=== PATIENT | female | born 1985 | race Caucasian/White ===

== ENCOUNTER 2016-12-13 13:20 | Observation (INO) ==
[2016-12-13] MEDS ORDERED: ceFAZolin 2,000 MG in D5% in Water (Mini-Bag+) 100 ML IVPB ONE (14:33)
[2016-12-13] MEDS ORDERED: *HR* OxyCODONE Immed Rel 5 MG TABLET PO PRN (14:38)
[2016-12-13] MEDS ORDERED: Ondansetron 4 MG/2 ML VIAL IVP PRN (14:38)
[2016-12-13] MEDS ORDERED: *HR* Morphine 2 MG/ML SYRINGE IVP PRN (14:38)
[2016-12-13] MEDS ORDERED: Ringers Solution, Lactated 1,000 ML IVC SCH (14:45)
[2016-12-13] MEDS ORDERED: CeFAZolin Pre 3,000 MG/100 ML 3,000 MG/100 ML BAG IVPB ONE (15:00)
[2016-12-13 15:43] LABS: BUN/Creatinine Ratio 18 (6-26); Blood Urea Nitrogen 13 mg/dL (7-20); Calcium 9.8 mg/dL (8.6-10.8); Carbon Dioxide 29 mEq/L (19-29); Chloride 103 mEq/L (98-109); Glucose 98 mg/dL (70-99); Osmolality,Calculated 290 (280-300); Potassium 3.7 mEq/L (3.5-4.5); Sodium 140 mEq/L (136-145); eGFR For African Americans > 60 (> 60); eGFR For Non-African Americans > 60 (> 60)
[2016-12-13 15:54] LABS: INR 1.1; Prothrombin Time 12.1 Seconds (9.4-12.1)
[2016-12-13 15:56] LABS: Activated Partial Thrombo Time 37.3 Seconds (26.0-36.0)
[2016-12-13 15:59] LABS: Basophils % 0.6 %; Eosinophils # 0.1 K/mcL (0.0-0.6); Eosinophils % 0.8 %; Hematocrit 39.3 % (35.3-44.9); Hemoglobin 12.2 g/dL (11.5-15.4); Immature Granulocytes % 0.1 % (0-4); Lymphocytes # 4.3 K/mcL (0.6-4.6); Lymphocytes % 61.1 %; Mean Corpuscular Hemoglobin 26.3 pg (28.0-33.3); Mean Corpuscular Volume 84.9 fL (83.0-100.0); Mean Platelet Volume 9.6 fL (9.4-12.4); Monocytes # 0.4 K/mcL (0.0-1.3); Monocytes % 5.5 %; Neutrophils # 2.3 K/mcL (1.6-8.9); Platelet Count 311 K/mcL (140-400); Red Blood Count 4.63 M/mcL (3.82-4.97); Red Cell Distribution Width 12.5 % (11.5-14.5); Segmented Neutrophils % 31.9 %
[2016-12-13] MEDS: *HR* OxyCODONE Immed Rel 5 MG TABLET PO PRN (21:41)
--- NOTE | 2016-12-13 22:01 | Anesthesia Evaluation PreOp ---
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 Significant HX Other Medical History: Diabetes Type II, Thyroid, Other (obesity BMI=45.4) Anesthesia History: No Prior Anesthetic Complications, Past Anesthesia Alcohol Use: none Drug use: none Medications and Allergies Gabapentin [Neurontin] 300 mg PO QAM 11/02/16 [History] Hydrochlorothiazide 12.5 mg PO DAILY 11/02/16 [History] Levothyroxine [Synthroid] 175 mcg PO DAILY 11/02/16 [History] Liraglutide [Victoza 3-Favio] 1.2 mg SQ DAILY 11/02/16 [History] Metformin HCl [Glucophage Xr] 750 mg PO QPM 11/02/16 [History] Multivitamin [Multi-Day Vitamins] 1 tab PO DAILY 11/02/16 [History] Simvastatin [Zocor] 40 mg PO HS 11/02/16 [History] Spironolactone [Aldactone] 50 mg PO DAILY 11/02/16 [History] Cephalexin [Cephalexin] 500 mg PO QID 12/13/16 [History] Gabapentin [Neurontin] 600 mg PO HS 12/13/16 [History] HYDROcodone/Acet 5/325 mg [[place] 5-325 mg] 1 tab PO Q6H PRN 12/13/16 [History] Allergies linagliptin [From Tradjenta] Adverse Reaction (Verified 11/02/16 12:47) Confusion propoxyphene Adverse Reaction (Verified 11/02/16 12:47) Confusion - Meds/Allergy Pre-op Review Medications Reviewed: Yes Allergies Reviewed: Yes Beta Blockers on Current Med List: No Anesthesia Results - Labs 12/13/16 14:47 12/13/16 14:47 Laboratory Tests 12/13/16 14:47 PT 12.1 INR 1.1 APTT 37.3 H - Imaging EKG: report reviewed (11/01/2016 SR) Anesthesia Exam Vital Signs/O2 Sat/Glucose, Most Recent Temp Pulse Resp BP Pulse Ox 98.0 F 74 18 122/76 94 L 12/13/16 14:33 12/13/16 14:33 12/13/16 14:33 12/13/16 14:33 12/13/16 14:33 Blood Glucose* 100 Height: 6'/1.83 m Weight: 335 lbs/151.953 kg Pain Scale: 3 Pain Scale Used: Numeric (1 - 10) - HEENT Pupil (Motor): EOMI Mallampati: III Teeth: Normal Oral Opening: Greater than 3 - NURSING TEACHER LOC: Oriented NURSING TEACHER Motor: Normal RUE, Normal LUE, Normal RLE, Normal LLE, Normal Face NURSING TEACHER Sensory: Normal: RUE, LUE, RLE, LLE, Face - Cardiac Rhythm: Regular Murmur: None - Pulmonary Breath Sounds: bilateral Clear Respiratory Effort: Symmetrical Anesthesia Assess/Plan ASA Score: 3 Modified Linda Scale for Level of Consciousness: Cooperative, oriented, and tranquil Anesthetic Plan: General Monitoring Plan: Standard Monitors Recovery Plan: PACU
[2016-12-14] MEDS: *HR* OxyCODONE Immed Rel 5 MG TABLET PO PRN ×4 (02:02→22:08)
--- NOTE | 2016-12-14 08:12 | Spine - History & Physical Rep ---
Date of Encounter: 12/14/16 Time of Encounter: 07:30 Assessment and Plan (1) History of lumbar laminectomy Current visit: Yes Status: Chronic (2) Wound drainage Current visit: Yes Status: Acute On exam she is afebrile vital signs are stable. She is neurovascularly intact with regard to her bilateral lower extremities. Lungs are clear, cardiovascular regular rate and rhythm abdomen is soft nontender and nondistended but is obese. Her lumbar spine has serosanguineous/bloody material coming from the ends of the wound which is open about 1 cm on each end distally and proximally. Mild erythema about the wound. She has a negative straight leg raise. Her hips move symmetrically. There is no clonus. Impression: 1) history of lumbar laminectomy 2) lumbar wound drainage Plan: We are going to admit for definitive management of the wound. We will get routine preoperative preparation in order including appropriate laboratory studies. We have discussed wound closure versus possible irrigation and debridement of the lumbar wound depending on intraoperative findings. Risk and benefits were discussed and the patient would like to proceed. History of Present Illness Chief complaint: wound drainage HPI: Ms. Rayo is a 31 year old female who is status post lumbar decompression surgery 11/02/2016. She had an uneventful postoperative course but recently developed drainage from her lumbar wound for approximately 1 week. She denies fevers and chills. The drainage of worsened and became continuous despite oral antibiotics in the form of Keflex. Due to the need for wound management and possible closure and/or irrigation and debridement she was admitted for definitive management. Past Med Surg Social Fam HX - Past Medical History Medical history: diabetes, hypertension, liver disease Psychiatric history: no psych history - Social History Smoking Status: Former smoker Smokeless Tobacco Status: No Alcohol use: none Drug use: none - Family History Mother Living Status: Still Living Hx Family Endocrine Disorder: Yes (hypothyroidism) Father Living Status: Still Living Hx Family Cardiac Disorders: Yes (double bypass, triple bypass, high blood pressure) Hx Family Cancer: Yes (skin cancer) Medications and Allergies Gabapentin [Neurontin] 300 mg PO QAM 11/02/16 [History] Hydrochlorothiazide 12.5 mg PO DAILY 11/02/16 [History] Levothyroxine [Synthroid] 175 mcg PO DAILY 11/02/16 [History] Liraglutide [Victoza 3-Favio] 1.2 mg SQ DAILY 11/02/16 [History] Metformin HCl [Glucophage Xr] 750 mg PO QPM 11/02/16 [History] Multivitamin [Multi-Day Vitamins] 1 tab PO DAILY 11/02/16 [History] Simvastatin [Zocor] 40 mg PO HS 11/02/16 [History] Spironolactone [Aldactone] 50 mg PO DAILY 11/02/16 [History] Cephalexin [Cephalexin] 500 mg PO QID 12/13/16 [History] Gabapentin [Neurontin] 600 mg PO HS 12/13/16 [History] HYDROcodone/Acet 5/325 mg [[place] 5-325 mg] 1 tab PO Q6H PRN 12/13/16 [History] Allergies linagliptin [From Tradjenta] Adverse Reaction (Verified 11/02/16 12:47) Confusion propoxyphene Adverse Reaction (Verified 11/02/16 12:47) Confusion Results - Labs Result Diagrams: 12/13/16 14:47 12/13/16 14:47 Labs: Abnormal lab results MCH 26.3 pg (28.0-33.3) L 12/13/16 14:47 MCHC 31.0 g/dL (31.6-35.5) L 12/13/16 14:47 APTT 37.3 Seconds (26.0-36.0) H 12/13/16 14:47 H & H 12/13/16 Range/Units 14:47 Hgb 12.2 (11.5-15.4) g/dL Hct 39.3 (35.3-44.9) % All other labs normal. - VTE Documentation of Mechanical Device: Intermittent pneumatic compression device
[2016-12-14] MEDS ORDERED: Gabapentin 300 MG CAPSULE PO SCH ×2 (09:00→21:00)
[2016-12-14] MEDS ORDERED: hydroCHLOROthiazide 25 MG TABLET PO SCH (09:00)
[2016-12-14] MEDS ORDERED: Multivit/Ca/Min/Fe/FA 1 TAB TABLET PO SCH (09:00)
--- NOTE | 2016-12-14 11:55 | Electrocardiograph Report ---
[address] [address] Test Date: 2016-12-13 Pat Name: [facility] Department: [id number] Room: [facility] Gender: F Business Office Manager: : 1985 Requested By: Mat Saez Order Number: [id number] Reading MD: Piero Nichols MD Measurements Intervals Bath Rate: 73 P: 50 NE: 193 QRS: 69 QRSD: 103 T: 28 QT: 402 QTc: 427 Interpretive Statements SINUS RHYTHM Electronically Signed On 12-14-2016 11:54:11 EST by Piero Nichols MD
[2016-12-14] MEDS ORDERED: Dexamethasone 4 MG/ML VIAL ONE (16:58)
[2016-12-14] MEDS ORDERED: *HR* Midazolam HCl 2 MG/2 ML VIAL ONE (16:58)
[2016-12-14] MEDS ORDERED: *HR* FentaNYL (PF) 100 MCG/2 ML VIAL ONE ×2 (16:58→17:53)
[2016-12-14] MEDS ORDERED: Lidocaine -MPF 2% 2 ML VIAL ONE (16:58)
[2016-12-14] MEDS ORDERED: Lidocaine -MPF 4% 5 ML AMPUL ONE (16:58)
[2016-12-14] MEDS ORDERED: *HR* Succinylcholine 200 MG/10 ML VIAL IVP ONE (16:58)
[2016-12-14] MEDS ORDERED: Ondansetron 4 MG/2 ML VIAL ONE (16:58)
[2016-12-14] MEDS ORDERED: *HR* Propofol 200 MG/20 ML VIAL IVP ONE (16:59)
[2016-12-14] MEDS ORDERED: Vancomycin 1,000 MG VIAL ONE (17:08)
[2016-12-14] MEDS ORDERED: *HR* HYDROmorphone (PF) 1 MG/ML SYRINGE IVP PRN (18:12)
[2016-12-14] MEDS ORDERED: *HR* Promethazine 25 MG/ML VIAL IVP PRN (18:12)
--- NOTE | 2016-12-14 18:31 | Orthopedic Operative Note ---
Date of procedure: 12/14/16 Pre-op diagnosis: Lumbar wound drainage Post-op diagnosis: same Operation/Findings: Irrigation and debridement, closure lumbar wound: The patient was brought to the operative theater where she underwent general endotracheal anesthesia. Antibiotics were held prior to the start of the procedure in anticipation of taking intraoperative cultures. Compression boots and stockings were used for deep vein thrombosis prophylaxis. The patient was placed prone on a Jose table. The back was prepped and draped in the usual sterile fashion. An elliptical incision was made around the previous lumbar incision. This was to remove any compromised tissue which had previous drainage. Incision was deepened through the subcutaneous tissue and fascia. Any mildly compromised material was deeply debridement with a Rongeur. We took intraoperative deep cultures of the lumbar wound. We copiously irrigated the wound and then closed the wound in layers with 1 Vicryl for the fascia, and interrupted 0 Prolene and 2-0 nylon was used for skin closure. Sterile dressings were placed over the wound, the patient was turned supine in a hospital bed, and was extubated in the operative theater. All sponge needles and instrument counts were correct at the end of the procedure. The patient tolerated the procedure well without complications. Surgeon: Mat Saez Jr Estimated blood loss (cc): 25 Specimen: Deep lumbar wound cultures Condition: stable Disposition: PACU
--- NOTE | 2016-12-14 19:22 | Anesthesia Evaluation Post Op ---
Date of Encounter: 12/14/16 Time of Encounter: 19:21 - Vital Signs Vital Signs: Vital Signs/O2 Sat, Most Current Temp Pulse Resp BP Pulse Ox 97.7 F 87 14 128/76 96 12/14/16 19:11 12/14/16 19:11 12/14/16 19:11 12/14/16 19:11 12/14/16 19:11 - Lungs Lungs: Clear Ascult./Percussion - Airway Airway: Non-obstructed - Cardiovascular Regular Rate - Mental Status Mental Status: Asleep with brisk response to light stimulation - Pain Pain Scale: 5 Pain Scale used: Numeric (1 - 10) - Nausea Vomiting Nausea Vomiting: Not Present - Hydration Hydration: NPO, Has not voided - Discharge PostOp Status: Transfer Patient to floor
[2016-12-14] MEDS ORDERED: *HR* Morphine 2 MG/ML SYRINGE IVP PRN (19:34)
[2016-12-14] MEDS ORDERED: Sennosides 8.6 MG TABLET PO PRN (19:34)
[2016-12-14] MEDS ORDERED: Ringers Solution, Lactated 1,000 ML IVC SCH (19:34)
[2016-12-14] MEDS ORDERED: Naloxone 0.4 MG/ML INJ IVP PRN (19:34)
[2016-12-14] MEDS ORDERED: Ondansetron 4 MG/2 ML VIAL IVP PRN (19:34)
[2016-12-14] MEDS ORDERED: *HR* Metformin 500 MG TABLET PO SCH (21:00)
[2016-12-14] MEDS: ceFAZolin 2,000 MG in D5% in Water 100 ML IVPB SCH (23:40)
[2016-12-15] MEDS: ceFAZolin 2,000 MG in D5% in Water 100 ML IVPB SCH (08:37)
[2016-12-15] MEDS: *HR* OxyCODONE Immed Rel 5 MG TABLET PO PRN (08:38)
[2016-12-15] MEDS ORDERED: (Liraglutide [Victoza 3-Pak] 1.2 MG) SQ SCH (09:00)
[2016-12-15] MEDS ORDERED: hydroCHLOROthiazide 25 MG TABLET PO SCH (09:00)
[2016-12-15] MEDS ORDERED: Multivit/Ca/Min/Fe/FA 1 TAB TABLET PO SCH (09:00)
[2016-12-15 11:53] VITALS: BP 114/76
--- NOTE | 2016-12-15 12:12 | Discharge Summary ---
Date of Encounter: 12/15/16 Time of Encounter: 12:10 - Discharge Medications Prescriptions: OxyCODONE Immed Rel [Roxicodone 5 MG] 10 mg PO Q6HR PRN #50 tablet PRN Reason: Severe Pain Home Medications: Gabapentin [Neurontin] 300 mg PO QAM 11/02/16 [History] Hydrochlorothiazide 12.5 mg PO DAILY 11/02/16 [History] Levothyroxine [Synthroid] 175 mcg PO DAILY 11/02/16 [History] Liraglutide [Victoza 3-Favio] 1.2 mg SQ DAILY 11/02/16 [History] Metformin HCl [Glucophage Xr] 750 mg PO QPM 11/02/16 [History] Multivitamin [Multi-Day Vitamins] 1 tab PO DAILY 11/02/16 [History] Simvastatin [Zocor] 40 mg PO HS 11/02/16 [History] Spironolactone [Aldactone] 50 mg PO DAILY 11/02/16 [History] Cephalexin 500 mg PO QID 12/13/16 [History] Gabapentin [Neurontin] 600 mg PO HS 12/13/16 [History] OxyCODONE Immed Rel [Roxicodone 5 MG] 10 mg PO Q6HR PRN #50 tablet 12/15/16 [Rx] Allergies/Adverse Reactions: Allergies linagliptin [From Tradjenta] Adverse Reaction (Verified 11/02/16 12:47) Confusion propoxyphene Adverse Reaction (Verified 11/02/16 12:47) Confusion Labs on day of discharge: Labs from last 24 hours 12/14/16 12/14/16 18:44 17:04 POC Glucose 89 85 Preliminary micro results at discharge 12/14/16 17:55 Wound Culture - Preliminary Incision No growth. - Impressions ITS Impressions Chest X-Ray 12/13/16 14:33 IMPRESSION: 1. No active pulmonary disease. D/ / Tadeo Sampson MD / Tadeo Sampson MD Interpreting Provider: Tadeo Sampson MD Date of admission: 12/13/16 13:33 Primary care physician: Nadege Altman Consults: 12/14/16 19:34 Consult to Nurse Navigator [CONS] Routine Comment: spine navigator Consult to Occupational Therapy [CONS] Routine Comment: Evaluate, develop and implement POC Consult to Physical Therapy [CONS] Routine Comment: Evaluate, develop and implement POC - Patient Status Disposition: Home, Self-Care - Discharge Instructions Follow Up With: Sierra Roldan PAC [Physician Zoology Technical Officer] - 01/03/17 8:00 am Viry Chow DO [Primary Care Provider] - Jose Chinchilla DO [Partnered Physician] - 12/20/16 8:30 am - Hospital Course Hospital course: Ms. Rayo is a 31 year old female - Time Spent with Patient Total time spent providing and/or coordinating discharge services: - VTE Documentation of Mechanical Device: Intermittent pneumatic compression device
[2016-12-15] MEDS ORDERED: *HR* Metformin 500 MG TABLET PO SCH (18:00)
== END 2016-12-15 13:33 | disposition home or self-care (01) ==
LOC: 3NENU
PROVIDERS: ADMIT Orthopaedic Surgery Orthopaedic Surgery of the Spine; ATTEND Orthopaedic Surgery Orthopaedic Surgery of the Spine